=== PATIENT | female | born 1970 | race Caucasian/White ===

== ENCOUNTER 2016-11-28 11:11 | Emergency (ER) | payer SELFPAY ==
[~2016-11-28] VITALS: Ht 165.1 cm; Wt 54.4 kg
[2016-11-28] MEDS ORDERED: fentaNYL PF VIAL 100 MCG/2 ML VIAL IV PRN (11:45)
[2016-11-28] MEDS ORDERED: IV NORMAL SALINE 1000ML BAG 1,000 ML IV SCH (12:00)
[2016-11-28] MEDS ORDERED: ONDANSETRON PF 4 MG/2 ML VIAL. IV ONE (12:00)
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
[2016-11-28] MEDS ORDERED: HYDR-971 PO (13:13)
[2016-11-28 13:29] VITALS: BP 142/78
== END 2016-11-28 13:34 | disposition home or self-care (01) ==
LOC: ER 11:11
DX: S09.8XXA Other specified injuries of head, initial encounter (principal); S00.83XA Contusion of other part of head, initial encounter; M79.7 Fibromyalgia; Z88.0 Allergy status to penicillin; Y04.0XXA Assault by unarmed brawl or fight, initial encounter; Y93.89 Activity, other specified; Y99.8 Other external cause status; Y92.89 Other specified places as the place of occurrence of the external cause
CPT/HCPCS: 70450; 70486; 96361; 96374; 96375; 99284; J2405; J3010; J7030